=== PATIENT | female | born 1935 | race African-American/Black ===

== ENCOUNTER 2019-03-05 13:45 | Inpatient (IN) | payer BC ==
[~2019-03-05] VITALS: Ht 154.9 cm; Wt 58.5 kg
[2019-03-05] MEDS ORDERED: SODIUM CHLORIDE 0.9% 1,000 ML IV ONE (16:42)
[2019-03-05] MEDS ORDERED: VANCOMYCIN 1 G PREMIX 200 ML IV ONE (16:45)
[2019-03-05] MEDS ORDERED: PIPERACILLIN/TAZ 3.375G PREMIX 50 ML IV ONE (16:45)
[2019-03-05] MEDS ORDERED: ENALAPRIL 2.5MG/2ML VIAL 2ML IV ONE (16:45)
[2019-03-05 17:14] LABS: BASOPHILS % 1.1 % (0.0-2.0); EOSINOPHILS % 1.9 % (0.0-5.0); HEMATOCRIT. 40.8 % (36.0-48.0); HEMOGLOBIN. 13.6 g/dL (12.0-16.0); LYMPHOCYTES % 23.6 % (20.0-50.0); MEAN CORPUSCULAR HEMOGLOBIN 30.4 pg (28.0-32.0); MEAN CORPUSCULAR VOLUME 91.5 fL (81.0-99.0); MEAN PLATELET VOLUME 8.2 fl (7.4-10.4); MONOCYTES % 6.8 % (2.0-8.0); NEUTROPHILS % 66.6 % (40.0-76.0); PLATELET 276 x1000/uL (130-400); RED BLOOD CELL COUNT 4.46 mill/uL (4.2-5.4); RED CELL DISTRIBUTION WIDTH 15.1 % (11.6-14.6)
[2019-03-05 17:19] LABS: CHLORIDE 108 mEq/L (98-107)
[2019-03-05 17:22] LABS: PARTIAL THROMBOPLASTIN TIME 30.2 sec (23.4-31.0); PROTHROMBIN TIME 10.6 sec (9.6-11.0)
[2019-03-05] MEDS ORDERED: ENALAPRIL 1.25MG/ML VIAL 1ML IV NR (17:30)
[2019-03-05] MEDS ORDERED: LORAZEPAM 0.5MG TABLET PO ONE (17:45)
[2019-03-05 18:40] LABS: CLARITY URINE CLEAR (CLEAR); COLOR URINE YELLOW (YELLOW); KETONES URINE NEGATIVE (NEGATIVE); LEUKOCYTE ESTERASE URINE TRACE (NEGATIVE); NITRITE URINE NEGATIVE (NEGATIVE); OCCULT BLOOD URINE 1+ (NEGATIVE); PH URINE 7.5 (4.5-8.0); PROTEIN URINE NEGATIVE (NEGATIVE); SPECIFIC GRAVITY URINE 1.006 (1.005-1.030); UROBILINOGEN URINE 0.2 E.U./dL (0.2-1.0)
[2019-03-05 23:32] VITALS: BP 135/74
[2019-03-06] VITALS: BP 169/60
[2019-03-06] MEDS ORDERED: CLONIDINE 0.1MG TABLET PO PRN (00:30)
[2019-03-06] MEDS ORDERED: HYDROCODONE/ACETAMINOPHEN 5/325MG TABLET PO PRN ×3 (00:30→10:30)
[2019-03-06 04:00] VITALS: BP 122/56
[2019-03-06 06:48] LABS: BASOPHILS % 1.1 % (0.0-2.0); CHLORIDE 110 mEq/L (98-107); EOSINOPHILS % 5.2 % (0.0-5.0); HEMATOCRIT. 35.7 % (36.0-48.0); LYMPHOCYTES % 25.5 % (20.0-50.0); MEAN CORPUSCULAR HEMOGLOBIN 30.5 pg (28.0-32.0); MEAN CORPUSCULAR VOLUME 90.8 fL (81.0-99.0); MEAN PLATELET VOLUME 8.4 fl (7.4-10.4); NEUTROPHILS % 59.2 % (40.0-76.0); PLATELET 247 x1000/uL (130-400); RED BLOOD CELL COUNT 3.93 mill/uL (4.2-5.4)
[2019-03-06 08:00] VITALS: BP 124/54
[2019-03-06] MEDS ORDERED: DOCUSATE SODIUM 100MG CAPSULE PO PRN (10:30)
[2019-03-06] MEDS ORDERED: ONDANSETRON HCL 4MG/2ML INJ IV PRN (10:30)
[2019-03-06] MEDS ORDERED: MAGNESIUM/ALUMINUM HYDROXIDE/SIMETHICONE 30ML UDC PO PRN (10:30)
[2019-03-06 12:00] VITALS: BP 127/59
[2019-03-06 16:00] VITALS: BP 127/59
[2019-03-06] MEDS: SODIUM CHLORIDE 0.9% 1,000 ML IV SCH (18:21)
[2019-03-06 20:00] VITALS: BP 167/69
[2019-03-06] MEDS: CLONIDINE 0.1MG TABLET PO PRN (21:42)
[2019-03-07] VITALS: BP 126/82
[2019-03-07 04:00] VITALS: BP 131/90
[2019-03-07 06:55] LABS: CHLORIDE 110 mEq/L (98-107)
[2019-03-07 07:01] LABS: EOSINOPHILS % 4.6 % (0.0-5.0); HEMATOCRIT. 36.3 % (36.0-48.0); HEMOGLOBIN. 12.4 g/dL (12.0-16.0); LYMPHOCYTES % 23.2 % (20.0-50.0); MEAN CORPUSCULAR HEMOGLOBIN 30.8 pg (28.0-32.0); MEAN CORPUSCULAR VOLUME 90.2 fL (81.0-99.0); MEAN PLATELET VOLUME 8.5 fl (7.4-10.4); NEUTROPHILS % 63.2 % (40.0-76.0); PLATELET 241 x1000/uL (130-400); RED BLOOD CELL COUNT 4.03 mill/uL (4.2-5.4); RED CELL DISTRIBUTION WIDTH 14.8 % (11.6-14.6)
[2019-03-07 07:11] LABS: PHOSPHORUS 2.7 mg/dL (2.5-4.9)
[2019-03-07 07:13] LABS: LDL CHOLESTEROL 98 mg/dL (5-100)
[2019-03-07 07:16] LABS: HDL CHOLESTEROL 63 mg/dL (40-59)
[2019-03-07 08:00] VITALS: BP 150/61
[2019-03-07] MEDS ORDERED: IOHEXOL-300 100 ML BOTTLE ONE ×2 (11:01→11:05)
[2019-03-07 12:00] VITALS: BP 160/55
[2019-03-07] MEDS: SODIUM HYPOCHLORITE 0.125% 473ML SOLUTION TOP SCH (14:41)
[2019-03-07 16:00] VITALS: BP 160/71
[2019-03-07] MEDS: CLONIDINE 0.1MG TABLET PO PRN (17:05)
[2019-03-07] MEDS: SODIUM CHLORIDE 0.9% 1,000 ML IV SCH (17:07)
[2019-03-07 20:00] VITALS: BP 143/70
[2019-03-08] VITALS: BP 185/72
[2019-03-08] MEDS ORDERED: OLANZAPINE 10 MG/VIAL IM NR
[2019-03-08 04:00] VITALS: BP 122/53
[2019-03-08 05:52] LABS: CHLORIDE 109 mEq/L (98-107)
[2019-03-08 06:22] LABS: EOSINOPHILS % 3.4 % (0.0-5.0); HEMATOCRIT. 36.7 % (36.0-48.0); HEMOGLOBIN. 12.3 g/dL (12.0-16.0); LYMPHOCYTES % 20.5 % (20.0-50.0); MEAN CORPUSCULAR HEMOGLOBIN 30.6 pg (28.0-32.0); MEAN CORPUSCULAR VOLUME 90.8 fL (81.0-99.0); MEAN PLATELET VOLUME 8.6 fl (7.4-10.4); MONOCYTES % 7.7 % (2.0-8.0); NEUTROPHILS % 67.4 % (40.0-76.0); PLATELET 254 x1000/uL (130-400); RED BLOOD CELL COUNT 4.04 mill/uL (4.2-5.4); RED CELL DISTRIBUTION WIDTH 14.7 % (11.6-14.6)
[2019-03-08 08:00] VITALS: BP 153/60
[2019-03-08] MEDS: SODIUM HYPOCHLORITE 0.125% 473ML SOLUTION TOP SCH (10:41)
[2019-03-08] MEDS ORDERED: POTASSIUM CHLORIDE 20MEQ TABLET SR PO SCH (11:15)
[2019-03-08 12:00] VITALS: BP 137/56
[2019-03-08] MEDS ORDERED: IOHEXOL-300 100 ML BOTTLE ONE (15:44)
[2019-03-08 16:00] VITALS: BP 147/61
[2019-03-08 20:00] VITALS: BP 156/66
[2019-03-09] VITALS: BP 155/65
[2019-03-09 04:00] VITALS: BP 140/65
[2019-03-09 07:14] LABS: EOSINOPHILS % 4.2 % (0.0-5.0); HEMATOCRIT. 38.7 % (36.0-48.0); HEMOGLOBIN. 12.9 g/dL (12.0-16.0); LYMPHOCYTES % 27.9 % (20.0-50.0); MEAN CORPUSCULAR HEMOGLOBIN 30.2 pg (28.0-32.0); MEAN CORPUSCULAR VOLUME 90.6 fL (81.0-99.0); MEAN PLATELET VOLUME 8.7 fl (7.4-10.4); MONOCYTES % 7.8 % (2.0-8.0); NEUTROPHILS % 59.1 % (40.0-76.0); PLATELET 250 x1000/uL (130-400); RED BLOOD CELL COUNT 4.27 mill/uL (4.2-5.4); RED CELL DISTRIBUTION WIDTH 14.8 % (11.6-14.6)
[2019-03-09 07:27] LABS: CHLORIDE 110 mEq/L (98-107)
[2019-03-09 08:00] VITALS: BP 127/58
[2019-03-09] MEDS: SODIUM HYPOCHLORITE 0.125% 473ML SOLUTION TOP SCH (08:55)
[2019-03-09 12:00] VITALS: BP 142/61
[2019-03-09 16:00] VITALS: BP 150/68
[2019-03-09 20:00] VITALS: BP 150/59
[2019-03-10] VITALS: BP 179/85
[2019-03-10] MEDS: CLONIDINE 0.1MG TABLET PO PRN (01:23)
[2019-03-10] MEDS: ACETAMINOPHEN 325MG TABLET PO PRN (01:24)
[2019-03-10 04:00] VITALS: BP 118/58
[2019-03-10 06:48] LABS: HEMATOCRIT. 38.2 % (36.0-48.0); LYMPHOCYTES % 24.6 % (20.0-50.0); MEAN CORPUSCULAR HEMOGLOBIN 30.8 pg (28.0-32.0); MEAN CORPUSCULAR VOLUME 90.5 fL (81.0-99.0); MEAN PLATELET VOLUME 8.2 fl (7.4-10.4); NEUTROPHILS % 61.4 % (40.0-76.0); PLATELET 255 x1000/uL (130-400); RED BLOOD CELL COUNT 4.23 mill/uL (4.2-5.4); RED CELL DISTRIBUTION WIDTH 15.1 % (11.6-14.6)
[2019-03-10 06:51] LABS: CHLORIDE 111 mEq/L (98-107)
[2019-03-10 08:00] VITALS: BP 146/68
[2019-03-10] MEDS: SODIUM HYPOCHLORITE 0.125% 473ML SOLUTION TOP SCH (09:59)
[2019-03-10 12:00] VITALS: BP 140/68
[2019-03-10 16:00] VITALS: BP 127/59
[2019-03-10 20:00] VITALS: BP 145/62
[2019-03-11] VITALS: BP 145/67
[2019-03-11 04:00] VITALS: BP 135/63
[2019-03-11 05:58] LABS: BASOPHILS % 1.1 % (0.0-2.0); EOSINOPHILS % 5.6 % (0.0-5.0); HEMATOCRIT. 38.3 % (36.0-48.0); HEMOGLOBIN. 13.1 g/dL (12.0-16.0); LYMPHOCYTES % 23.5 % (20.0-50.0); MEAN CORPUSCULAR VOLUME 90.6 fL (81.0-99.0); MEAN PLATELET VOLUME 8.8 fl (7.4-10.4); MONOCYTES % 8.1 % (2.0-8.0); NEUTROPHILS % 61.7 % (40.0-76.0); PLATELET 258 x1000/uL (130-400); RED BLOOD CELL COUNT 4.22 mill/uL (4.2-5.4); RED CELL DISTRIBUTION WIDTH 14.8 % (11.6-14.6)
[2019-03-11 06:21] LABS: CHLORIDE 111 mEq/L (98-107)
[2019-03-11 08:00] VITALS: BP 149/64
[2019-03-11] MEDS: SODIUM HYPOCHLORITE 0.125% 473ML SOLUTION TOP SCH (09:28)
[2019-03-11 12:00] VITALS: BP 128/62
[2019-03-11 16:00] VITALS: BP 141/69
[2019-03-11] MEDS ORDERED: LACTULOSE 20G/30ML UDC PO NR (16:15)
[2019-03-11 20:00] VITALS: BP 148/69
[2019-03-12] VITALS: BP 164/59
[2019-03-12] MEDS: CLONIDINE 0.1MG TABLET PO PRN (01:46)
[2019-03-12] MEDS: ACETAMINOPHEN 325MG TABLET PO PRN (01:50)
[2019-03-12 04:00] VITALS: BP 123/69
[2019-03-12 08:00] VITALS: BP 125/59
[2019-03-12] MEDS: SODIUM HYPOCHLORITE 0.125% 473ML SOLUTION TOP SCH (09:53)
[2019-03-12 10:11] LABS: BASOPHILS % 0.9 % (0.0-2.0); EOSINOPHILS % 1.6 % (0.0-5.0); HEMATOCRIT. 39.3 % (36.0-48.0); HEMOGLOBIN. 13.2 g/dL (12.0-16.0); LYMPHOCYTES % 22.3 % (20.0-50.0); MEAN CORPUSCULAR HEMOGLOBIN 30.6 pg (28.0-32.0); MEAN CORPUSCULAR VOLUME 90.7 fL (81.0-99.0); MEAN PLATELET VOLUME 8.8 fl (7.4-10.4); MONOCYTES % 6.5 % (2.0-8.0); NEUTROPHILS % 68.7 % (40.0-76.0); PLATELET 253 x1000/uL (130-400); RED BLOOD CELL COUNT 4.33 mill/uL (4.2-5.4); RED CELL DISTRIBUTION WIDTH 14.5 % (11.6-14.6)
[2019-03-12 10:17] LABS: CHLORIDE 109 mEq/L (98-107)
[2019-03-12 11:45] VITALS: BP 133/58
[2019-03-12 16:00] VITALS: BP 105/42
[2019-03-12 20:00] VITALS: BP 152/66
[2019-03-13] VITALS: BP 149/59
[2019-03-13 03:15] LABS: CLARITY URINE CLEAR (CLEAR); COLOR URINE YELLOW (YELLOW); KETONES URINE NEGATIVE (NEGATIVE); LEUKOCYTE ESTERASE URINE 1+ (NEGATIVE); NITRITE URINE NEGATIVE (NEGATIVE); OCCULT BLOOD URINE TRACE (NEGATIVE); PROTEIN URINE NEGATIVE (NEGATIVE); SPECIFIC GRAVITY URINE 1.023 (1.005-1.030); UROBILINOGEN URINE 0.2 E.U./dL (0.2-1.0)
[2019-03-13 04:00] VITALS: BP 173/67
[2019-03-13] MEDS: CLONIDINE 0.1MG TABLET PO PRN (04:38)
[2019-03-13 07:19] LABS: BASOPHILS % 0.8 % (0.0-2.0); EOSINOPHILS % 4.1 % (0.0-5.0); HEMATOCRIT. 36.8 % (36.0-48.0); HEMOGLOBIN. 12.5 g/dL (12.0-16.0); MEAN CORPUSCULAR HEMOGLOBIN 30.6 pg (28.0-32.0); MEAN CORPUSCULAR VOLUME 89.8 fL (81.0-99.0); MEAN PLATELET VOLUME 8.5 fl (7.4-10.4); MONOCYTES % 7.5 % (2.0-8.0); NEUTROPHILS % 65.6 % (40.0-76.0); PLATELET 239 x1000/uL (130-400); RED BLOOD CELL COUNT 4.09 mill/uL (4.2-5.4); RED CELL DISTRIBUTION WIDTH 14.6 % (11.6-14.6)
[2019-03-13 07:26] LABS: CHLORIDE 110 mEq/L (98-107)
[2019-03-13 08:00] VITALS: BP 126/57
[2019-03-13] MEDS: SODIUM HYPOCHLORITE 0.125% 473ML SOLUTION TOP SCH (08:55)
[2019-03-13] MEDS: AMLODIPINE 5MG TABLET PO SCH (10:14)
[2019-03-13 12:00] VITALS: BP 119/62
[2019-03-13 16:00] VITALS: BP 136/58
[2019-03-13 20:00] VITALS: BP 136/72
[2019-03-14] VITALS: BP 137/60
[2019-03-14 04:00] VITALS: BP 136/61
[2019-03-14] MEDS ORDERED: LIDOCAINE HCL/EPINEPHRINE 1%-EPI 1:100,000 30 ML VIAL INFIL SCH (06:00)
[2019-03-14 06:43] LABS: CHLORIDE 111 mEq/L (98-107)
[2019-03-14 06:45] LABS: EOSINOPHILS % 4.7 % (0.0-5.0); HEMOGLOBIN. 12.8 g/dL (12.0-16.0); LYMPHOCYTES % 26.1 % (20.0-50.0); MEAN CORPUSCULAR HEMOGLOBIN 31.1 pg (28.0-32.0); MEAN CORPUSCULAR VOLUME 90.2 fL (81.0-99.0); MEAN PLATELET VOLUME 8.4 fl (7.4-10.4); MONOCYTES % 8.7 % (2.0-8.0); NEUTROPHILS % 59.5 % (40.0-76.0); PLATELET 233 x1000/uL (130-400); RED CELL DISTRIBUTION WIDTH 14.6 % (11.6-14.6)
[2019-03-14 08:00] VITALS: BP 137/64
[2019-03-14] MEDS ORDERED: SILVER NITRATE APPLICATOR STICK TOP NR (08:15)
[2019-03-14] MEDS: AMLODIPINE 5MG TABLET PO SCH (09:17)
[2019-03-14] MEDS: SODIUM HYPOCHLORITE 0.125% 473ML SOLUTION TOP SCH (09:17)
[2019-03-14 12:00] VITALS: BP 142/63
[2019-03-14 16:00] VITALS: BP 133/73
[2019-03-14 20:00] VITALS: BP 140/61
[2019-03-14] MEDS: ACETAMINOPHEN 325MG TABLET PO PRN (22:23)
[2019-03-15] VITALS: BP 152/66
[2019-03-15 04:00] VITALS: BP 131/57
[2019-03-15 07:55] LABS: CHLORIDE 110 mEq/L (98-107)
[2019-03-15 08:00] VITALS: BP 124/64
[2019-03-15 08:01] LABS: EOSINOPHILS % 4.3 % (0.0-5.0); HEMOGLOBIN. 13.1 g/dL (12.0-16.0); LYMPHOCYTES % 29.8 % (20.0-50.0); MEAN CORPUSCULAR HEMOGLOBIN 30.5 pg (28.0-32.0); MEAN CORPUSCULAR VOLUME 90.6 fL (81.0-99.0); MEAN PLATELET VOLUME 8.6 fl (7.4-10.4); MONOCYTES % 8.7 % (2.0-8.0); NEUTROPHILS % 56.2 % (40.0-76.0); PLATELET 234 x1000/uL (130-400); RED CELL DISTRIBUTION WIDTH 14.5 % (11.6-14.6)
[2019-03-15] MEDS: SODIUM HYPOCHLORITE 0.125% 473ML SOLUTION TOP SCH (09:21)
[2019-03-15] MEDS: AMLODIPINE 5MG TABLET PO SCH (09:21)
[2019-03-15 12:00] VITALS: BP 126/62
[2019-03-15 16:00] VITALS: BP 139/64
[2019-03-15 20:00] VITALS: BP 136/70
[2019-03-16 00:14] VITALS: BP 125/62
[2019-03-16] MEDS: ACETAMINOPHEN 325MG TABLET PO PRN ×2 (01:41→22:29)
[2019-03-16 04:29] VITALS: BP 120/27
[2019-03-16 08:00] VITALS: BP 143/67
[2019-03-16] MEDS: SODIUM HYPOCHLORITE 0.125% 473ML SOLUTION TOP SCH (09:01)
[2019-03-16] MEDS: AMLODIPINE 5MG TABLET PO SCH (09:01)
[2019-03-16 12:00] VITALS: BP 127/63
[2019-03-16 16:00] VITALS: BP 111/63
[2019-03-16 20:00] VITALS: BP 133/69
[2019-03-17] VITALS: BP 131/61
[2019-03-17 04:00] VITALS: BP 126/69
[2019-03-17 07:56] LABS: BASOPHILS % 1.1 % (0.0-2.0); EOSINOPHILS % 4.7 % (0.0-5.0); HEMATOCRIT. 39.7 % (36.0-48.0); HEMOGLOBIN. 13.4 g/dL (12.0-16.0); LYMPHOCYTES % 31.6 % (20.0-50.0); MEAN CORPUSCULAR HEMOGLOBIN 30.6 pg (28.0-32.0); MEAN CORPUSCULAR VOLUME 90.9 fL (81.0-99.0); MEAN PLATELET VOLUME 8.5 fl (7.4-10.4); MONOCYTES % 8.4 % (2.0-8.0); NEUTROPHILS % 54.2 % (40.0-76.0); PLATELET 256 x1000/uL (130-400); RED BLOOD CELL COUNT 4.36 mill/uL (4.2-5.4); RED CELL DISTRIBUTION WIDTH 14.7 % (11.6-14.6)
[2019-03-17 08:00] VITALS: BP 135/71
[2019-03-17 08:19] LABS: CHLORIDE 110 mEq/L (98-107)
[2019-03-17] MEDS: AMLODIPINE 5MG TABLET PO SCH (09:28)
[2019-03-17] MEDS: SODIUM HYPOCHLORITE 0.125% 473ML SOLUTION TOP SCH (09:28)
[2019-03-17 12:00] VITALS: BP 115/65
[2019-03-17 16:00] VITALS: BP 126/63
[2019-03-17 20:00] VITALS: BP 141/74
[2019-03-18] VITALS: BP 115/45
[2019-03-18 04:00] VITALS: BP 145/75
[2019-03-18 08:00] VITALS: BP 143/81
[2019-03-18] MEDS: SODIUM HYPOCHLORITE 0.125% 473ML SOLUTION TOP SCH (09:00)
[2019-03-18] MEDS: AMLODIPINE 5MG TABLET PO SCH (09:27)
[2019-03-18] MEDS: ACETAMINOPHEN 325MG TABLET PO PRN (10:30)
[2019-03-18 15:47] VITALS: BP 142/68
[2019-03-18 18:08] VITALS: BP 142/68
[2019-03-18 20:00] VITALS: BP 158/67
== END 2019-03-18 21:07 | DRG 584 ==
LOC: ER 13:45 → 5WST 17:52 → EDBEDREQ 17:53 → EDBEDREQTM 17:53 → ENRESERV 21:16
PROVIDERS: ADMIT Family Medicine Adult Medicine; ATTEND Family Medicine Adult Medicine
PROC: 0HBU0ZX Excision of Left Breast, Open Approach, Diagnostic (ICD-10-PCS; principal; 2019-03-14)
DX: C50.912 Malignant neoplasm of unspecified site of left female breast (principal); C79.89 Secondary malignant neoplasm of other specified sites; N39.0 Urinary tract infection, site not specified; L98.0 Pyogenic granuloma; F03.90 Unspecified dementia, unspecified severity, without behavioral disturbance, psychotic disturbance, mood disturbance, and anxiety; E86.0 Dehydration; I10 Essential (primary) hypertension; E87.6 Hypokalemia; K80.20 Calculus of gallbladder without cholecystitis without obstruction; K57.90 Diverticulosis of intestine, part unspecified, without perforation or abscess without bleeding; L02.92 Furuncle, unspecified; Z91.14 Patient's other noncompliance with medication regimen; Z91.19 Patient's noncompliance with other medical treatment and regimen; Z87.891 Personal history of nicotine dependence; Z79.899 Other long term (current) drug therapy
CPT/HCPCS: 36415; 70470; 71045; 71270; 74178; 80048; 80061; 83605; 83735; 83880; 84100; 84134; 84145; 84443; 84484; 88305; 93005; 93970; 96365; 97116; 97162; 97166; 97530; 97535; 99285; C1893; J2405; J2543; J3370; J3490; J7030; J7040; J7050; Q9967